=== PATIENT | male | born 1970 | race Caucasian/White ===

== ENCOUNTER 2020-10-31 15:28 | Emergency (ER) | payer MEDICAID ==
[~2020-10-31] VITALS: Ht 180.3 cm; Wt 84.1 kg
[2020-10-31] MEDS ORDERED: KETAMINE HCL 50 MG/ML 10 ML VIAL IVP ONE (16:30)
[2020-10-31] MEDS ORDERED: FentaNYL CITRATE-PF 100 MCG/2 ML VIAL IVP ONE (18:00)
[2020-10-31 19:35] VITALS: BP 123/73
== END 2020-10-31 19:39 | disposition home or self-care (01) ==
LOC: EMS 15:28
DX: S43.015A Anterior dislocation of left humerus, initial encounter (principal); W17.2XXA Fall into hole, initial encounter; Y93.89 Activity, other specified; Y92.89 Other specified places as the place of occurrence of the external cause; Y99.8 Other external cause status
CPT/HCPCS: 23650; 73030; 99152; 99285; J3490

== ENCOUNTER 2021-02-25 11:22 | Emergency (ER) | payer MEDICAID ==
[~2021-02-25] VITALS: Ht 175.3 cm; Wt 87.3 kg
[2021-02-25] MEDS ORDERED: ACETAMINOPHEN 500 MG TABLET PO ONE (12:15)
[2021-02-25] MEDS ORDERED: CeFAZolin 2 GM/DEXTROSE 50 ML IV ONE (12:15)
[2021-02-25 13:03] LABS: ANION GAP 10 mmol/L (8-16); BASOPHILS % (AUTO) 0.6 % (0.0-2.0); CALCIUM, TOTAL 8.6 mg/dL (8.8-10.5); CARBON DIOXIDE 28 mmol/L (22-29); CHLORIDE 101 mmol/L (98-107); CREATININE 0.99 mg/dL (0.60-1.30); EOSINOPHILS % (AUTO) 2.6 % (1.0-6.0); GLOMERULAR FILTR. RATE CALC > 60 mL/min (>60); GLUCOSE,RANDOM 92 mg/dL (70-110); HEMATOCRIT 46.1 % (41-53); HEMOGLOBIN 15.8 g/dL (13.5-17.5); LYMPHOCYTES % (AUTO) 39.6 % (22.0-44.0); MEAN CORPUSCULAR HEMOGLOBIN 32.2 pg (26.0-34.0); MEAN CORPUSCULAR HGB CONC 34.3 G/dL (31.0-37.0); MEAN CORPUSCULAR VOLUME 94 fL (80-100); MONOCYTES # (AUTO) 0.7 K/uL (0.1-1.0); MONOCYTES % (AUTO) 8.8 % (2.0-9.0); NEUTROPHILS # (AUTO) 3.7 K/uL (1.8-7.7); NEUTROPHILS % (AUTO) 48.4 % (40.0-70.0); PLATELET COUNT (AUTO) 206 K/uL (150-450); POTASSIUM 3.9 mmol/L (3.5-5.1); RED BLOOD CELL COUNT(AUTO) 4.91 MIL/uL (4.50-5.90); RED CELL DISTRIBUTION WIDTH 13.1 % (11.5-14.5); SODIUM SERUM 139 mmol/L (136-145); UREA NITROGEN, BLOOD 16 mg/dL (7-18)
[2021-02-25 13:08] LABS: ALANINE AMINOTRANSFERASE 48 U/L (12-78); ALBUMIN 3.9 g/dL (3.4-5.0); ALKALINE PHOSPHATASE 120 U/L (46-116); ASPARTATE AMINOTRANSFERASE 24 U/L (15-37); BILIRUBIN,TOTAL 0.4 mg/dL (0.1-1.0); TOTAL PROTEIN, SERUM 7.9 g/dL (6.4-8.2)
[2021-02-25 13:43] LABS: COVID AG,FIA SOURCE NASOPHARYNGEAL
[2021-02-25 16:30] VITALS: BP 136/81
== END 2021-02-25 17:00 | disposition short-term general hospital (02) ==
LOC: EMS 11:42
DX: S61.302A Unspecified open wound of right middle finger with damage to nail, initial encounter (principal); Z20.822 Contact with and (suspected) exposure to COVID-19; W23.0XXA Caught, crushed, jammed, or pinched between moving objects, initial encounter; Y93.89 Activity, other specified; Y92.89 Other specified places as the place of occurrence of the external cause; Y99.0 Civilian activity done for income or pay
CPT/HCPCS: 36415; 73140; 80053; 85025; 87426; 96365; 99285; J0690